=== PATIENT | male | born 1975 | race African-American/Black ===

== ENCOUNTER 2019-01-06 17:45 | Emergency (ER) | payer OTHER ==
[~2019-01-06] VITALS: Ht 172.7 cm; Wt 81.7 kg
[~2019-01-06 17:45] MED LIST: AMOXICILLIN 50500 MG; NEXIUM40 MG PO; ZANTAC 150MG T150 M1 PO
[2019-01-06] MEDS ORDERED: FLEXERIL PO (19:19)
[2019-01-06] MEDS ORDERED: FAMOTIDINE 20 M20 MG PO (19:19)
[2019-01-06 19:37] LABS: ABSOLUTE NEUTROPHILS 4.9 thou/uL (1.4-8.2); BASOPHILS 1.2 % (0.0-2.0); EOSINOPHILS 2.3 % (0.0-3.0); HEMATOCRIT 48.4 % (42.0-52.0); HEMOGLOBIN 16.4 gm/dL (14.0-18.0); LYMPHOCYTES 26.1 % (24.0-44.0); MCH 27.2 pg (26.0-34.0); MCHC 33.8 g/dL (28.0-37.0); MCV 80.5 fL (80.0-100.0); MONOCYTES 5.9 % (1.0-8.0); PLATELET COUNT 207 thou/uL (150-400); POLYS 64.5 % (36.0-66.0); RBC 6.02 mil/uL (4.50-6.00); RDW 14.6 % (10.5-14.5); WBC 7.6 thou/uL (4.0-11.0)
[2019-01-06 19:38] LABS: ANION GAP 7 mmol/L (7-16); BUN 15 mg/dL (7-18); CALCIUM 9.6 mg/dL (8.5-10.1); CHLORIDE 106 mmol/L (98-107); CO2 31 mmol/L (21-32); CREATININE 1.1 mg/dL (0.7-1.3); GLUCOSE 80 mg/dL (74-106); POTASSIUM 3.6 mmol/L (3.5-5.1); SODIUM 144 mmol/L (136-145)
[2019-01-06 19:47] LABS: TROPONIN-I <0.06 ng/mL (<0.06)
[2019-01-06] MEDS ORDERED: TESSALON PERLE100 MG PO (20:09)
[2019-01-06] MEDS ORDERED: NAPROSYN500 MG PO (20:34)
[2019-01-06 20:38] VITALS: BP 126/73
--- NOTE | 2019-01-07 08:24 | EKG ---
[place] [address] [address] [facility] [facility] [employer] [address] ELECTROCARDIOGRAM REPORT Name: JESSICA OROZCO Room #: [facility]#: [id number] ������������������ Admission: 01/06/19 ������������������ Attend Phys: Discharge: 01/06/19 ������������������ Date of : 73 Report #: [id number] ����������������������������������������������������������������� [id number] THIS REPORT FOR: //name// [facility] ED Test Date: 2019-01-06 Test Time: 17:56:22 Pat Name: JESSICA OROZCO Department: Room: Gender: Rail Transportation Operator: : 1975 Requested By: Bob Cormier Order Number: [id number] MD: Darwin Graham Measurements Intervals [place] Rate: 61 P: 51 RI: 205 QRS: -17 QRSD: 96 T: 43 QT: 366 QTc: 369 Interpretive Statements Sinus rhythm Borderline prolonged RI interval RSR' in V1 or V2, right VCD Early repolarization Left ventricular hypertrophy Compared to ECG 05/12/2017 20:07:28 RSR' in V1 or V2 now present Electronically Signed On 01-07-2019 8:23:54 CDT by Darwin Graham [email or web address] ��������������������������������������������� <ELECTRONICALLY SIGNED> ���������������������������������������� By: Darwin Graham MD, [facility] ��������������������������������������������� 01/07/19 0823 1756 1756 Darwin Graham MD, [facility] /EPI
== END 2019-01-06 20:39 | disposition home or self-care (01) ==
LOC: ER 17:45
PROVIDERS: Emergency Medicine
DX: R07.89 Other chest pain (principal)